=== PATIENT | female | born 1955 | race Two or more races ===

== ENCOUNTER 2023-12-25 06:31 | Day surgery (SDC) | payer OTHER ==
[~2023-12-25] VITALS: Ht 157.5 cm; Wt 108.0 kg
[~2023-12-25 06:31] MED LIST: LIPITOR40 M1 PO; LOSARTAN POTASS50 MG PO; PAXIL20 MG PO; SYNTHROID50 MCG PO
[2023-12-25] MEDS ORDERED: CEFAZOLIN SODIUM 1,000 MG VIAL IV ONE (19:00)
== END 2023-12-25 22:45 | disposition home or self-care (01) ==
LOC: CIR.AMB 06:31 → ADM 15:30 → CIR.AMB 15:30
PROVIDERS: ATTEND Surgery
DX: C50.812 Malignant neoplasm of overlapping sites of left female breast (principal); R59.0 Localized enlarged lymph nodes; E03.9 Hypothyroidism, unspecified; I25.10 Atherosclerotic heart disease of native coronary artery without angina pectoris; I10 Essential (primary) hypertension
CPT/HCPCS: 19301; 38525; 19281; A9541; L8699